=== PATIENT | female | born 1940 | race Caucasian/White ===

== ENCOUNTER 2021-07-08 06:39 | Observation (INO) | payer OTHER ==
[~2021-07-08] VITALS: Ht 154.9 cm; Wt 65.8 kg
[~2021-07-08 06:39] MED LIST: ASPIRIN325 PO; ATENOLOL 25 MG25 M1 PO; CO Q-1030 MG PO; CYTOMEL 5MCG TA5 MCG PO; ESTRADIOL IM; FISH OIL 1,001000 M2 PO; INDAPAMIDE2.5 MG PO; L-METHYLFOLATE15 MG PO; MAGNESIUM GLYCONATE PO; MICARDIS 80 MG80 MG PO; MIRALAX119 GM PO; MULTI VITAMIN1 EACH PO; MYRBETRIQ50 MG PO; NIACIN250 MG PO; NORVASC5 MG PO; PROGESTERONE100 MG PO; PROPAFENONE 22225 M1 PO; TESTOSTERO200 MG/1 M IM; TRAMADOL 50 MG50 MG PO; TURMERIC500 M2 PO; ZANTAC-360 (FAM10 MG PO
[2021-07-08 07:59] LABS: CREATININE 1.4 mg/dL (0.6-1.0); POTASSIUM 3.7 mmol/L (3.5-5.1)
[2021-07-08 08:00] VITALS: BP 135/56
[2021-07-08 08:05] LABS: ALBUMIN 3.5 g/dL (3.4-5.0); TOTAL BILIRUBIN 0.6 mg/dL (0.2-1.0)
[2021-07-08 11:47] VITALS: BP 143/77
--- NOTE | 2021-07-08 12:46 | NUR ---
ASSUMED PT CARE AT 1140. PT IS ALERT & ORIENTED X4. PT HAS IV SITE ON RHAND RUNNNING NS @100ML/HR. PT HAS BILATERAL [employer] THIGH HIGH, SCD, AQUACEL DRESSING, ICE PACK AND BRACE FOR STANDING AND WALKING. PT IS ON ROOM AIR. PT DAUGHTER AT THE BEDSIDE. FINISHED ADMISSION. PT STATED THAT SHE USES CANE AT HOME. LAST BM WAS YESTERDAY. PT ON THE BED, BED ON THE LOWEST POSITION, SIDE RAILS UP, CALL LIGHT WITHIN REACH. WILL CONTINUE TO MONITOR PT. FOLLOW POC.
[2021-07-08 15:35] VITALS: BP 120/61
[2021-07-08 19:34] VITALS: BP 116/53
--- NOTE | 2021-07-09 03:19 | NUR ---
ASSESSED AT START OF SHIFT PT RESTING IN BED. DENIES N/V. EVVENING MEDS GIVEN AND PT KAYY IT WELL. IV INTACT AND FLUIDS INFUSING. NO FURTHER SIGNS OF DISCOMFORT WILL CONT TO MONITOR.
[2021-07-09 04:09] VITALS: BP 153/64
[2021-07-09 05:28] LABS: BASOPHILS 0.4 % (0.0-2.0); HEMATOCRIT 40.7 % (37.0-47.0); HEMOGLOBIN 13.5 gm/dL (12.0-15.0); LYMPHOCYTES 12.5 % (24.0-44.0); MCH 30.9 pg (26.0-34.0); MCHC 33.2 g/dL (28.0-37.0); MCV 92.9 fL (80.0-100.0); MONOCYTES 8.8 % (1.0-8.0); PLATELET COUNT 199 thou/uL (150-400); POLYS 78.3 % (36.0-66.0); RBC 4.38 mil/uL (4.20-5.00); RDW 13.5 % (10.5-14.5); WBC 12.8 thou/uL (4.0-11.0)
[2021-07-09 05:55] LABS: CALCIUM 8.8 mg/dL (8.5-10.1); CREATININE 1.5 mg/dL (0.6-1.0)
[2021-07-09 07:18] VITALS: BP 127/62
--- NOTE | 2021-07-09 09:25 | NUR ---
L hip open troch bursectomy and abductor tendon repair. 81-year-old female with history of hypertension, A. fib, GERD, degenerative joint disease, history of colitis, chronic kidney disease. Patient reports problem with her left hip over the last few years progressively gotten worse. She plans to go stay with her daughter for two weeks, then with her other daughter for the next two weeks and then her son for the following two weeks. Cm visited with Keren at bedside, She is A & O x 3, able to make her needs known. Lives alone in a 2 story home. Independent prior and still able to go and feed her horse. Has a cane , fww and 4ww with seat. Drives vehicle. Manage her own medication. She plans on staying with each of her children for 2 weeks for total of 6 six for recovery. Been to [facility] outpatient therapy in [place], [place]. Would like to do outpt therapy again. Therapy will work with her again tomorrow 07/10/21. Anticipated dc tomorrow, brace will come from [facility] this evening.
--- NOTE | 2021-07-09 09:30 | NUR ---
A/O X 4. ROOM AIR. ONE ASSIST WITH WALKER. RIGHT HAND IV WITH NS @ 100 MLS/HR. AQUACEL TO LEFT HIP-DRY, CLEAN, AND INTACT. OXYCODONE GIVEN FOR PAIN. POSSIBLE D/C TODAY AFTER PT EVAL.
[2021-07-09 10:49] LABS: FOLIC ACID 24.8 ng/mL (8.6-58.9)
[2021-07-09 14:08] VITALS: BP 127/62
[2021-07-09 16:00] VITALS: BP 124/51
[2021-07-09 21:20] VITALS: BP 160/74
--- NOTE | 2021-07-10 03:55 | NUR ---
ASSUMED CARE OF PT AT 1900. BEDSIDE REPORT RECIEVED. NEMESIO ASSESSMENT COMPLETE. VSS, AFEBRILE, PT C/O L HIP PAIN. MEDS GIVEN PER MAR, PAIN MEDS GIVEN ACCORINLY. DRESSING TO LEFT HIP CDI C NO APPARENT DRAINAGE. SET UP PT TO BRUSH TEETH, ASSISTED PT TO USE BED MARIE. ALL NEEDS MET, CALL LIGHT IN REACH
--- NOTE | 2021-07-10 04:55 | NUR ---
I AGREE WITH THE ASSESSMENT AND CHARTING OF NURSE CHRISTIAN FOR THIS PT
[2021-07-10 07:17] VITALS: BP 150/58
--- NOTE | 2021-07-10 07:46 | NUR ---
A/O X 4. ROOM AIR. RIGHT HAND PIV-DRESSING DRY, CLEAN, AND INTACT SALINE WITH NS INFUSING @ 100 MLS/HR. AQUACEL-DRY, CLEAN, AND INTACT TO LEFT HIP. ICE PACK TO LEFT HIP. AWAITING FITTING FOR LEFT LEG BRACE TODAY TO D/C HOME. PAIN TO LEFT HIP 10/29.
--- NOTE | 2021-07-10 08:00 | NUR ---
Brace that [facility] was to deliver yesterday evening was not brought. Physical therapy has already reached out to [facility]. Still anticipated dc home to her daughter home today. Will cont following if needs arise.
[2021-07-10 08:32] VITALS: BP 150/58
--- NOTE | 2021-07-14 16:08 | O ---
[address] [address] OPERATIVE REPORT Name: WILLEM MONTES [facility]: 437-P [id number] Admission: 07/08/21 Attend Phys: Danny Mederos MD Discharge: 07/10/21 Date of : 36 Report #: [id number] THIS REPORT FOR: cc: Bashir Smart MD, Shaun B. MD McCabe,Danny Marie MD ~ DATE OF SERVICE: 07/08/2021 SERVICE: Orthopedics. FACILITY: [facility]. SURGEON: Danny Mederos MD CENTRIFUGAL CASTING MACHINE TENDER: Anne Mehta. INDICATIONS FOR CENTRIFUGAL CASTING MACHINE TENDER: Retraction, assistance with exposure and repair and closure. PREOPERATIVE DIAGNOSES: 1. Left hip pain. 2. Left hip Trendelenburg gait. 3. Left hip trochanteric bursitis. 4. Left hip chronic abductor tendon tear. POSTOPERATIVE DIAGNOSES: 1. Left hip pain. 2. Left hip Trendelenburg gait. 3. Left hip trochanteric bursitis. 4. Left hip chronic abductor tendon tear. PROCEDURES: 1. Left hip open abductor tendon repair. 2. Left hip open trochanteric bursectomy. COMPLICATIONS: None. DRAINS: None. SPECIMENS: None. ANESTHESIA: General. ESTIMATED BLOOD LOSS: 50 mL. FINDINGS: Complete avulsion of the abductor tendon with exposed greater [address] [address] OPERATIVE REPORT Name: WILLEM MONTES Room #: 437-P [facility]#: [id number] Admission: 07/08/21 Attend Phys: Danny Mederos MD Discharge: 07/10/21 Date of : 38 Report #: [id number] trochanter repair with Farina Marion suture anchor x 2 with a 2.4 mm suture tape. HISTORY: The patient is an 81-year-old female with persistent progressive worsening of left lateral hip pain and Trendelenburg gait. She has been using a cane and feels that her function is decreasing significantly. She is concerned about winding up in a wheelchair long-term and was interested in the most aggressive treatment options available for her left abductor tendon tear, which has been present for many years. We had a thorough discussion preoperatively with her and her daughter and answered their questions. She understands the risks, benefits, alternatives and indications of surgery. Risks include but not limited to pain, bleeding, infection, injuring nerves or blood vessels, persistent pain despite surgical intervention, failure of any repairs, continued pain and limping, need for further surgery as well as complications related to anesthesia up to and including mortality. Despite the risks, they wished to proceed. PROCEDURE IN DETAIL: After left lower extremity was correctly identified in the preoperative holding area as the operative extremity, the patient was taken to the operating room where general anesthesia was induced without complication. She was padded appropriately after being turned into the lateral decubitus position with the left side up, the right side down. Prophylactic antibiotics were administered at appropriate time. Left leg was then prepped and draped in standard sterile fashion. Timeout procedure was performed. Standard lateral approach was made. Full-thickness skin flaps were developed down to the fascia. The fascia was incised and immediately we visualized the exposed greater trochanter with osteophytes and hypertrophic tissue on the greater trochanter. There was some trochanteric bursal fluid and there was a bursitis present. A rongeur was used to debride the greater trochanter and a cautery and rongeur were used to perform an excision of the trochanteric bursa to address her chronic trochanteric bursitis. The abductor tendon was torn and migrated proximally. The abductor muscle itself was degenerated and there was a visible fatty atrophy, but there was some muscle fiber present. The deep layers were still attached, but the superficial layers were completely avulsed. After preparing the greater trochanter, we then proceeded with placement of the sutures, a total of 2 [employer] 2.4 mm suture tapes were utilized with a running modified Krackow-type locking suture distal anterior to proximal, then posteriorly and then back distal on the posterior side. Focusing the repair on the gluteus minimus and the anterior portion of the gluteus medius because the posterior gluteus medius was essentially nonexistent due to chronic atrophy and it really did not hold the suture at all. The first suture was placed with sutures exiting on the deep side of the muscle and tendon and then the second suture was placed with the sutures exiting on the superficial side, so as to compress the tendon. We ran the sutures and confirmed mobility. Prior to [address] [address] OPERATIVE REPORT Name: MONTESWILLEM Room #: 437-P [facility] Brent CottonEmily#: [id number] Admission: 07/08/21 Attend Phys: Danny Mederos MD Discharge: 07/10/21 Date of : 38 Report #: [id number] completing the repair and passing the sutures, I performed a very thorough blunt dissection of adhesions that were present around the gluteus musculature superficially from chronic retraction and scarring to the more superficial layers and this did allow for better mobility of the abductor muscle tendon unit themselves. After the sutures had been passed, the first Kathrine Marion suture anchor was placed with compression of the sutures and good advancement and tensioning of the repair. The second anchor was placed more posteriorly to have a greater spread. The repair was stable at this point. Suture tails were cut. The wound was copiously irrigated. There was no further tissue for repair. Other than advancing the posterior portion of the tensor fascia itzel, investing fascia over the anterior aspect of the gluteus medius hoping that this would provide some reinforcement and vascularity, I performed this with mattress sutures with 0 Vicryl suture and then once again irrigated and then closed the gluteus tisha fascial layer over a gram of vancomycin powder with 0 Vicryl suture in [id number] fashion. The fat layer was closed with 2-0 Vicryl. The skin was closed with 2-0 Vicryl followed by running subcuticular 3-0 Monocryl and Dermabond. Sterile dressing was applied. The patient was awakened from anesthesia and taken to recovery room in stable condition. No complications. All counts were reported correct. POSTOPERATIVE PLAN: Thirty pounds weightbearing or less with a toe touch weightbearing focus for 6 weeks and hip abduction brace for 6 weeks while standing and walking. No active abduction for 6 weeks. <ELECTRONICALLY SIGNED> By: Danny Mederos MD 07/14/21 [id number] Danny Mederos MD /nt
== END 2021-07-10 13:00 | disposition home health service (06) ==
LOC: TBA 06:39 → OR 06:39 → 4S 06:39 → ADMC 06:54 → EDSTATUS 10:38 → 4S 11:25 → OR 11:26 → 4S 11:26 → OR 15:22 → 4S 07-10 13:00
PROVIDERS: Nurse Practitioner; ADMIT Orthopaedic Surgery Sports Medicine; ATTEND Orthopaedic Surgery Sports Medicine
DX: S76.092A Other specified injury of muscle, fascia and tendon of left hip, initial encounter (principal); N17.9 Acute kidney failure, unspecified; M70.62 Trochanteric bursitis, left hip; M76.02 Gluteal tendinitis, left hip; R26.89 Other abnormalities of gait and mobility; N18.9 Chronic kidney disease, unspecified; I12.9 Hypertensive chronic kidney disease with stage 1 through stage 4 chronic kidney disease, or unspecified chronic kidney disease; I48.91 Unspecified atrial fibrillation; K21.9 Gastro-esophageal reflux disease without esophagitis; M19.90 Unspecified osteoarthritis, unspecified site; Z79.899 Other long term (current) drug therapy; X58.XXXA Exposure to other specified factors, initial encounter; Y92.89 Other specified places as the place of occurrence of the external cause; Y93.89 Activity, other specified
CPT/HCPCS: 50010; 50101; 50382; 50414; 53078; 54118; 56527; 56528; 57103; 59076; 59077; 59078; 62110; 62900; 70005